=== PATIENT | female | born 1960 | race African-American/Black ===

== ENCOUNTER 2018-07-22 10:14 | Emergency (ER) | payer SELFPAY ==
[~2018-07-22] VITALS: Ht 162.6 cm; Wt 94.8 kg
[2018-07-22 10:45] VITALS: BP 170/96
[2018-07-22] MEDS ORDERED: KETOROLAC TROMETH 60MG/2ML VIAL IM ONE (11:30)
== END 2018-07-22 11:51 | disposition home or self-care (01) ==
LOC: ER 10:14
DX: G89.29 Other chronic pain (principal); M79.605 Pain in left leg; I10 Essential (primary) hypertension
CPT/HCPCS: 73590; 96372; 99283; J1885